=== PATIENT | male | born 1945 ===

== ENCOUNTER 2017-03-30 07:34 | Emergency (ER) | payer MEDICARE, BC ==
[2017-03-30] MEDS ORDERED: Albuterol HFA INHALER* 8 gm MDI INH ONE (08:05)
[2017-03-30 08:17] VITALS: BP 121/61
--- NOTE | 2017-03-30 08:20 | UC ---
Respiratory Complaint HPI - HPI Summary HPI Summary: 71 YO MALE WITH COUGH X 4-5 DAYS PRODUCTIVE AT TIMES OF YELLOWISH SPUTUM NO FEVER CHILLS NO CP OR SOB HAS BEEN WHEEZY AT TIMES ILL WITH SIMILAR SYMPTOMS - History of Current Complaint Chief Complaint: UCRespiratory Stated Complaint: cough,sinuses Time Seen by Provider: 03/30/17 07:56 Hx Obtained From: Patient Onset/Duration: Gradual Onset, Lasting Days Timing: Constant Severity Initially: Mild Severity Currently: Moderate Pain Intensity: 0 Pain Scale Used: 0-10 Numeric Character: Cough: Productive Aggravating Factors: Exertion, Recumbent Position Alleviating Factors: Nothing Associated Signs And Symptoms: Positive: Chills, Wheezing. Negative: Dyspnea, Fever, Pleuritic Chest Pain, Hemoptysis, Dizziness, Calf Pain, Calf Swelling, Edema, URI, Nasal Congestion, Hoarseness, Sinus Discomfort - Allergies/Home Medications Allergies/Adverse Reactions: Allergies Allergy/AdvReac Type Severity Reaction Status Date / Time No Known Allergies Allergy Verified 03/30/17 07:52 Home Medications: Home Medications I Cap 1 tab PO QAM 03/30/17 [History Confirmed 03/30/17] PMH/Surg Hx/FS Hx/Imm Hx Cardiovascular History Of: Reports: Cardiac Disorders - CA, Hypertension, Myocardial Infarction - Surgical History Surgical History: Yes Surgery Procedure, Year, and Place: cardiac stents 2009 and 2014 - Family History Known Family History: Positive: Cardiac Disease, Hypertension - Social History Alcohol Use: Occasionally Substance Use Type: None Smoking Status (MU): Never Smoked Tobacco Have You Smoked in the Last Year: No - Immunization History Most Recent Influenza Vaccination: Aug 2014 Most Recent Tetanus Shot: unknown Most Recent Pneumonia Vaccination: within last 10 yrs Review of Systems Constitutional: Negative Skin: Negative Eyes: Negative ENT: Negative Respiratory: Cough Cardiovascular: Negative Gastrointestinal: Negative Genitourinary: Negative Motor: Negative Neurovascular: Negative Musculoskeletal: Negative Neurological: Negative Psychological: Negative All Other Systems Reviewed And Are Negative: Yes Physical Exam Triage Information Reviewed: Yes Appearance: Well-Appearing, No Pain Distress, Well-Nourished Vital Signs: Initial Vital Signs Temp 98.9 F 03/30/17 07:46 Pulse 74 03/30/17 07:46 Resp 24 03/30/17 07:46 Pulse Ox 96 03/30/17 07:46 Eyes: Positive: Conjunctiva Clear ENT: Positive: Normal ENT inspection, Pharynx normal, TMs normal. Negative: Nasal congestion, Nasal drainage, Trismus, Muffled/hoarse voice Neck: Positive: Supple, Nontender, No Lymphadenopathy Respiratory: Positive: No respiratory distress, No accessory muscle use, Wheezing - WITH FORCED EXPIRATION ONLY. Negative: Respiratory distress, Decreased breath sounds, Accessory muscle use Cardiovascular: Positive: RRR, No Murmur. Negative: Tachycardia, Bradycardia Musculoskeletal: Positive: ROM Intact, No Edema Neurological Exam: Normal Neurological: Positive: Alert, Muscle Tone Normal Psychological Exam: Normal Skin Exam: Normal UC Diagnostic Evaluation - Laboratory O2 Sat by Pulse Oximetry: 96 - NORMAL/NOT HYPOXIC Respiratory Course/Dx - Differential Dx/Diagnosis Provider Diagnoses: ACUTE BRONCHITIS Discharge - Discharge Plan Condition: Stable Disposition: HOME Prescriptions: Amoxicillin (*) [Amoxicillin 875 MG (*)] 875 mg PO BID #20 tab Prednisone [Deltasone] 20 mg PO DAILY #5 tab Patient Education Materials: Acute Bronchitis (ED) Referrals: Ramiro Nugent MD [Primary Care Provider] - 4 Days (IF NOT BETTER) Additional Instructions: REST FLUIDS PLAIN MUCINEX OR ROBITUSSIN TO ER FOR NEW OR WORSENING SYMPTOMS
== END 2017-03-30 08:24 | disposition home or self-care (01) ==
LOC: UCCORT 07:34
DX: J20.9 Acute bronchitis, unspecified (principal)
CPT/HCPCS: 99213; A9270-GY; G0463